=== PATIENT | male | born 1950 | race African-American/Black ===

== ENCOUNTER 2023-06-30 12:31 | Emergency (ER) | payer OTHER, SELFPAY ==
[2023-06-30 12:40] VITALS: BP 212/91; PULSE 58; RESP 20; TEMP 36.5; O2SAT 98
--- NOTE | 2023-06-30 12:52 | ED.GENADULT ---
HPI - General Adult General Chief complaint: Unspecified Stated complaint: High Blood Pressure History of Present Illness HPI narrative: PATIENT PRESENTS FOR EVALUATION OF ELEVATED BLOOD PRESSURE READING AT HOME. PATIENT STATES EARLIER TODAY HE STOOD UP AND HE HAD RIGHT-SIDED LEG WEAKNESS WAS DIZZY AND HAD A HEADACHE. EMS WAS CALLED AND HIS BLOOD PRESSURE WAS ELEVATED AT THAT TIME. PATIENT REFUSED TRANSPORTATION TO EMERGENCY ROOM. PATIENT REPORTS TO URGENT CARE FOR EVALUATION OF ELEVATED BLOOD PRESSURE. AT THIS TIME HE HAS NO HEADACHE PATIENT TOOK IBUPROFEN PRIOR TO ARRIVAL FOR HEADACHE. NO DIZZINESS NO SHORTNESS OF BREATH AND NO CHEST PAIN. PATIENT HAS NOT BEEN EVALUATED BY PRIMARY CARE PROVIDER IN SEVERAL YEARS AND TAKES Related Data Allergies Allergy/AdvReac Type Severity Reaction Status Date / Time No Known Allergies Allergy Uncoded 08/16/19 21:55 Review of Systems Review of Systems: CONSTITUTIONAL: DENIES FEVER, CHILLS, OR SWEATS. EYES: DENIES VISUAL CHANGES, REDNESS, OR DISCHARGE. ENT: DENIES RHINORRHEA, CONGESTION, SORE THROAT, OR OTALGIA. CARDIOVASCULAR: DENIES CHEST PAIN, PALPITATIONS, OR EDEMA. RESPIRATORY: DENIES COUGH OR DYSPNEA. GASTROINTESTINAL: DENIES ABDOMINAL PAIN, NAUSEA, VOMITING, OR DIARRHEA. GENITOURINARY: DENIES DYSURIA OR HEMATURIA. SKIN: DENIES RASH OR ITCHING. MUSCULOSKELETAL: DENIES BACK PAIN, JOINT PAIN, OR MYALGIA. NEUROLOGIC: DENIES HEADACHE, NUMBNESS, OR WEAKNESS. PSYCHIATRIC: DENIES ANXIETY OR DEPRESSION. PMFSH Comments AT TIME OF SIGNATURE, AGREE WITH NURSING PAST MEDICAL, SURGICAL, SOCIAL AND FAMILY HISTORY. THERE IS NO RELEVANT FAMILY HISTORY PERTINENT TO THE PRESENTING COMPLAINT Exam Narrative: GENERAL: WELL-APPEARING, WELL-NOURISHED, AND IN NO ACUTE DISTRESS. HEAD: NORMOCEPHALIC, ATRAUMATIC. EYES: PERRLA AND EOMI. ENT: NARES CLEAR, NO RHINORRHEA OR EPISTAXIS. MUCOUS MEMBRANES MOIST. NECK: SUPPLE. CHEST: CLEAR TO AUSCULTATION. NO RESPIRATORY DISTRESS. HEART: REGULAR RATE AND RHYTHM. NO MURMUR HEARD. NORMAL PERIPHERAL PULSES. ABDOMEN: SOFT, NONTENDER, NONDISTENDED, NORMAL ACTIVE BOWEL SOUNDS. EXTREMITIES: NORMAL RANGE OF MOTION. NO EDEMA. SKIN: WARM, DRY, NO RASH. NEURO: NO FOCAL DEFICITS. ALERT AND ORIENTED X3. SPEECH IS CLEAR. NO LANGUAGE DEFICITS. CRANIAL NERVES: PUPILS EQUAL, ROUND, AND REACTIVE TO LIGHT. VISUAL LEWIS FULL. EXTRA-OCULAR MOVEMENTS INTACT. NO NYSTAGMUS NOTED. FACIAL SENSATION INTACT TO LIGHT TOUCH. FACIAL MOVEMENT FULL AND SYMMETRIC. PALATE MIDLINE. TONGUE MIDLINE, MOVING EQUALLY IN BOTH DIRECTIONS. UVULA IS MIDLINE. SHOULDER SHRUG EQUAL ON BOTH SIDES. BILATERAL HAND GRASP 5/5. GAIT NORMAL. HEEL TO TOE AND TANDEM WALK NORMAL. FINGER TO NOSE NORMAL. NEG ROMBERG. DICK COMA SCALE EYE OPENING: SPONTANEOUS 4 DICK COMA SCALE MOTOR: OBEYS COMMANDS 6 DICK COMA SCALE VERBAL: ORIENTED 5 DICK COMA SCALE TOTAL 15 Course Course Level of Care: Express Care Visit Vital Signs Vital signs: Vital Signs Temperature 36.5 C 06/30/23 12:40 Pulse Rate 58 L 06/30/23 12:40 Respiratory Rate 20 06/30/23 12:40 Blood Pressure 212/91 H 06/30/23 12:40 Pulse Oximetry 98 06/30/23 12:40 Oxygen Delivery Room Air 06/30/23 12:40 Temperature 36.5 C 06/30/23 12:40 Pulse Rate 58 L 06/30/23 12:40 Respiratory Rate 20 06/30/23 12:40 Blood Pressure 212/91 H 06/30/23 12:40 Pulse Oximetry 98 06/30/23 12:40 Oxygen Delivery Room Air 06/30/23 12:40 DISCUSSED RED FLAGS AND PATIENT'S SINUS SYMPTOMS PRIOR TO ARRIVAL AND PATIENT DECLINES TRANSFER TO EMERGENCY ROOM AT THIS TIME. ENCOURAGE PATIENT TO GO TO EMERGENCY ROOM FOR FURTHER EVALUATION TREATMENT OF BLOOD PRESSURE. DAUGHTER IN ROOM AND STATES SHE WILL MONITOR HER FATHER AND TAKE TO EMERGENCY ROOM FOR FURTHER EVALUATION TREATMENT IF ANY NEW OR RETURNING OF SYMPTOMS. Medical Decision Making Vital Signs Vital Signs: Vital Signs Temperature 36.5 C 06/30/23 12:40 Pulse Rate 58
== END 2023-06-30 13:07 | disposition left against medical advice (07) ==
PROVIDERS: Emergency Provider Nurse Practitioner Family
DX: R03.0 Elevated blood-pressure reading, without diagnosis of hypertension (principal)
CPT/HCPCS: 99202; G0463

== ENCOUNTER 2025-09-09 14:42 | Emergency (ER) | payer OTHER, SELFPAY ==
[2025-09-09] VITALS (13 sets, daily range): BP systolic 159–232; BP diastolic 91–105; PULSE 56–63; RESP 16–20; TEMP 36.8; O2SAT 95–100
--- NOTE | ~2025-09-09 | XR_ITS ---
EXAMINATION: XR chest 1V portable COMPARISON: No comparisons available. HISTORY: chest pain FINDINGS: Mild pulmonary venous congestion. No pneumothorax. Mild cardiomegaly. Mediastinal and hilar contours are within normal limits. Bony thorax no acute abnormality. Miscellaneous: None Impression: Mild CHF Reviewed, dictated and finalized at location P. S DATA ANALYST Impression: Mild CHF
--- NOTE | ~2025-09-09 | CT_ITS ---
CT chest abdomen pelvis w con HISTORY: chest pain, lower abd pain/r flank pain, poss canc . COMPARISON: None. TECHNIQUE: Axial images of the chest, abdomen and pelvis were obtained without and with infusion of 100 Isovue 300. FINDINGS: CT CHEST: The examination demonstrates diffuse centrilobular emphysematous changes. There is a 6.7 mm pulmonary nodule in the posterior right lower lobe measured on axial image 70. On the same image is a 5.4 mm pleural-based pulmonary nodule within the right lower lobe. There is groundglass and interstitial opacities within the right lower lobe. No focal consolidation, pleural effusions or pneumothorax. No pathologically enlarged hilar or mediastinal lymphadenopathy is seen. Cardiac size and mediastinal configuration are normal in appearance. The pulmonary artery and thoracic aorta are normal in caliber and patency. Osseous structures are intact. The visualized organs of the upper abdomen are unremarkable. IMPRESSION: Pulmonary nodules within the right lower lobe measuring up to 6.7 mm. A follow- up low-dose CT in 6 months can be done to ensure stability. CT abdomen and pelvis with contrast: The liver parenchyma is unremarkable. No intrahepatic mass or ductal dilatation is evident. The gallbladder is unremarkable. The pancreas and spleen are normal in appearance. The adrenal glands are symmetric in size. The kidneys demonstrate symmetric uptake and excretion of contrast. No cystic mass is evident. There is no solid mass. There is no hydronephrosis. There is a enhancing nodule at the base of the right side the bladder measuring 10 x 18 mm. This is concerning for a tumor and a follow-up cystoscopy is recommended. The stomach and bowel loops are unremarkable. No free intraperitoneal fluid or air is evident. There is no significant retroperitoneal lymphadenopathy. The aorta, visceral vessels and renal arteries demonstrate normal caliber and patency. The lower thoracic and lumbar vertebrae are in normal alignment. IMPRESSION: 10 x 18 mm enhancing nodule within the right sided of the bladder concerning for malignancy. Follow-up cystoscopy is recommended. All CT scans at this facility are performed using low dose modulation techniques as appropriate to perform exam including the following: automated exposure control; use of iterative reconstruction technique; adjustment of the mA and/or kV according to patient size (this includes techniques or standardized protocols for targeted exams where dose is matched to indication/reason for exam) Reviewed, dictated and finalized at location S. MOLDER MEAT IMPRESSION: Pulmonary nodules within the right lower lobe measuring up to 6.7 mm. A follow- up low-dose CT in 6 months can be done to ensure stability. CT abdomen and pelvis with contrast: The liver parenchyma is unremarkable. No intrahepatic mass or ductal dilatation is evident. The gallbladder is unremarkable. The pancreas and spleen are gary l in appearance. The adrenal glands are symmetric in size. The kidneys demonstrate symmetric uptake and excretion of contrast. No cystic m ass is evident. There is no solid mass. There is no hydronephrosis. There is a enhancing nodule at the base of the right side the bladder measuring 10 x 18 m m. This is concerning for a tumor and a follow-up cystoscopy is recommended. The stomach and bowel loops are unremarkable. No free intraperitoneal fluid or air is evident. There is no significant retro peritoneal lymphadenopathy. The aorta, visceral vessels and renal arteries demonstrate normal caliber and p atency. The lower thoracic and lumbar vertebrae are in normal alignment. IMPRESSION: 10 x 18 mm enhancing nodule within the right sided of the bladder concerning fo r malignancy. Follow-up cystoscopy is recommended. All CT scans at this facility are performed using low dose modulation techniqu es as appropriate to perform exam including the following: automated exposure c ontrol; use of iterative reconstruction technique; adjustment of the mA and/or kV according to patient size (this includes techniques or standardized protocol s for targeted exams where dose is matched to indication/reason for exam)
--- NOTE | 2025-09-09 16:21 | ED_ITS ---
HPI - General Adult General Chief complaint: Urogenital-Male Stated complaint: tired Time Seen by Provider: 09/09/25 16:21 Related Data Allergies Allergy/AdvReac Type Severity Reaction Status Date / Time No Known Allergies Allergy Uncoded 08/16/19 21:55 Course Vital Signs Vital signs: Vital Signs Temperature 98.3 F 09/09/25 14:47 Pulse Rate 62 09/09/25 14:47 Respiratory Rate 16 09/09/25 14:47 Blood Pressure 159/100 H 09/09/25 14:47 Pulse Oximetry 95 09/09/25 14:47 Temperature 98.3 F 09/09/25 14:47 Pulse Rate 62 09/09/25 14:47 Respiratory Rate 16 09/09/25 14:47 Blood Pressure 159/100 H 09/09/25 14:47 Pulse Oximetry 95 09/09/25 14:47 Medical Decision Making Vital Signs Vital Signs: Vital Signs Temperature 98.3 F 09/09/25 14:47 Pulse Rate 62 09/09/25 14:47 Respiratory Rate 16 09/09/25 14:47 Blood Pressure 159/100 H 09/09/25 14:47 Pulse Oximetry 95 09/09/25 14:47 Temperature 98.3 F 09/09/25 14:47 Pulse Rate 62 09/09/25 14:47 Respiratory Rate 16 09/09/25 14:47 Blood Pressure 159/100 H 09/09/25 14:47 Pulse Oximetry 95 09/09/25 14:47 Discharge Plan Discharge Patient Language: Greenlandic Follow-up/Referrals: PHYSICIAN,INTERLOCKING TOWER OPERATOR [Primary Care Provider, Internal Medicine]
[2025-09-09 17:30] LABS: Add Urine Microscopic? YES; Appearance Urine Clear (Clear); Glucose Urine UA Negative (Negative); Leukocyte Esterase Ur 1+ LEU/UL (Negative); Nitrate Urine Negative (Negative); Non Pathogenic Casts 0-2; Specific Grav Ur 1.021 (1.001-1.035)
--- NOTE | 2025-09-09 17:31 | ECG_ITS ---
Test Date: 2025-09-09 18:00:09 Measurements Intervals [place] Rate: 56 P: 49 NC: 136 QRS: 51 QRSD: 137 T: 13 QT: 456 QTc: 441 Interpretive Statements SINUS BRADYCARDIA INTRAVENTRICULAR CONDUCTION DELAY Electronically Signed On 09-10-2025 07:20:07 HEAD KILN OPERATOR by Ernst Rockwell D.O
--- NOTE | 2025-09-09 17:34 | ED_ITS ---
HPI - General Adult General Chief complaint: Urogenital-Male Stated complaint: tired Time Seen by Provider: 09/09/25 16:21 Source: patient Mode of arrival: ambulatory Limitations: no limitations History of Present Illness HPI narrative: This is a 74-year-old male with no significant past medical history who presents the ED for a constellation of complaints. Patient states that for the past couple days, he has been having intermittent hematuria and urinary urgency. He had this once a month ago but did not see a physician for it. He states that today he was at work at his [employer]. Cleaning something when he had onset of chest tightness. He has never had this before. He is unaware of any history of cardiac disease or hypertension. He has not seen a physician in several years. Denies shortness of breath, nausea vomiting, diarrhea, constipation abdominal pain. Related Data Allergies Allergy/AdvReac Type Severity Reaction Status Date / Time No Known Allergies Allergy Uncoded 08/16/19 21:55 Review of Systems 2 Review of Systems: Gen.: Denies fevers or chills Eyes: Denies eye pain or visual change ENT: Denies congestion Respiratory: Denies shortness of breath or cough CV: As per HPI GI: Denies abdominal pain nausea, emesis or diarrhea as per HPI Musculoskeletal: Denies back pain or muscle pain Neuro: Denies numbness, tingling, weakness or focal weakness Skin: Denies rash Except as documented, all other systems reviewed and negative Exam 2 Narrative: APPEARANCE: No acute distress, nontoxic, resting in bed EYES: EOMI HEENT: Normocephalic, atraumatic, OMM RESPIRATORY: No respiratory distress Clear to auscultation bilaterally with no rhonchi wheezing or rales. CARDIOVASCULAR: Regular rate and rhythm without murmurs rubs or gallops. ABDOMINAL: Soft, nontender, nondistended, no rebound or guarding MUSCULOSKELETAl: Moves all extremities. No clubbing, cyanosis or edema. NEURO: Awake and alert. Following commands, speech normal, no focal deficits SKIN:: Warm, dry. No rashes lesions or abrasions PSYCHIATRIC: Normal affect/mood, Course Vital Signs Vital signs: Vital Signs Temperature 98.3 F 09/09/25 14:47 Pulse Rate 62 09/09/25 14:47 Respiratory Rate 16 09/09/25 14:47 Blood Pressure 159/100 H 09/09/25 14:47 Pulse Oximetry 95 09/09/25 14:47 Temperature 98.3 F 09/09/25 14:47 Pulse Rate 63 09/09/25 19:33 Respiratory Rate 20 09/09/25 19:33 Blood Pressure 224/97 H 09/09/25 19:33 Pulse Oximetry 97 09/09/25 19:33 Oxygen Delivery Room Air 09/09/25 15:42 Medical Decision Making MDM Narrative Medical decision making narrative: 74-year-old male Presenting for hematuria and chest pain that is now resolved. On initial evaluation patient was in no acute distress afebrile. Noted to be hypertensive to the 220s/90s. Differentials include but are not limited to: ACS, PE, PNA, bronchitis, costochondritis, pleurisy, viral syndrome, GERD, bladder cancer, UTI, ureterolithiasis Notable exam findings: Abdomen soft nontender. Heart and lungs clear. Notable lab findings: Mild anemia at 12.7. CMP without significant abnormalities. BNP slightly elevated at 500. UA consistent with hematuria without signs infections. Notable imaging findings: Chest x-ray consistent with mild CHF. CT chest/abdomen/pelvis showed pulmonary nodule in the right lower lobe that is 6.7 mm. Also noted 10 x 18 mm enhancing nodule in the right bladder they could be concerning for malignancy. Patient remained hypertensive throughout his ED course but he was noted to have no chest pain throughout his ED course. He had no other symptoms concerning for hypertensive emergency at this time. Patient has likely been hypertensive for years at this point and he does not follow-up with any physician. He was given 10 mg amlodipine given the extent of his hypertension his only slightly prior to discharge. Patient was educated on the bladder nodule noted that he removed her urology evaluation for cystoscopy as this likely is likely the course of his hematuria. Patient was given referral to Dr. Kowalski, urology, for further evaluation. He was also given a referral to Dr. Starks, family Medicine, to establish care especially for his hypertension. He was given a prescription for amlodipine. Patient was agreeable to this plan. Given strict return precautions. Vital Signs Vital Signs: Vital Signs Temperature 98.3 F 09/09/25 14:47 Pulse Rate 62 09/09/25 14:47 Respiratory Rate 16 09/09/25 14:47 Blood Pressure 159/100 H 09/09/25 14:47 Pulse Oximetry 95 11/05/25 14:47 Temperature 98.3 F 09/09/25 14:47 Pulse Rate 63 09/09/25 19:33 Respiratory Rate 20 09/09/25 19:33 Blood Pressure 224/97 H 09/09/25 19:33 Pulse Oximetry 97 09/09/25 19:33 Oxygen Delivery Room Air 09/09/25 15:42 Lab Data Lab results reviewed: Yes I reviewed the patient's lab results. 09/09/25 17:57 09/09/25 17:57 Labs: Lab Results 09/09/25 09/09/25 09/09/25 Range/Units 17:19 17:57 17:57 WBC 7.2 (4.5-10.0) K/mm3 RBC 5.29 (4.6-6.20) M/mm3 Hgb 12.7 L (14.0-18.0) g/dL Hct 41.3 L (42.0-52.0) % MCV 78.1 L (80-100) fl MCH 24.0 L (26-34) pg MCHC 30.8 L (32-36) g/dl RDW 14.7 H (11.5-14.5) % Plt Count 266 (150-375) k/mm3 MPV 11.3 H (7.4-10.4) fl Immature Gran % (Auto) 0.3 (0-0.5) % Neut % (Auto) 41.1 L (45.5-73.1) % Lymph % (Auto) 39.5 (18.3-44.2) % [place] % (Auto) 13.7 H (2.6-8.5) % Eos % (Auto) 4.3 (0-4.4) % Baso % (Auto) 1.1 (0.2-1.2) % Lymph # (Auto) 2.83 (0.9-3.2) K/mm3 [place] # (Auto) 1.0 H (0.1-0.6) K/mm3 Eos # (Auto) 0.3 (0-0.3) K/mm3 Baso # (Auto) 0.1 (0.0-0.1) K/mm3 Abs Immat Gran (auto) 0.02 (0.00-0.031) K/mm3 Absolute Neuts (auto) 3.0 (1.3-6.7) K/mm3 Absolute Nucleated RBC 0.000 (0.0-0.012) K/mm3 Nucleated RBC % 0.0 (0.0-0.2) % Sodium 137 (137-145) mmol/L Potassium 3.7 (3.4-5.0) mmol/L Chloride 108 H (98-107) mmol/L Carbon Dioxide 25 (22-30) mmol/L Anion Gap 4 (4-12) mmol/L BUN 20 (9-20) mg/dL Creatinine 1.00 (0.7-1.3) mg/dL Estim Creat Clear Calc 49 ml/min Estimated GFR > 60 (59 - ) Glucose 105 (65-110) mg/dL Calcium 8.6 (8.4-10.2) mg/dL Total Bilirubin 0.5 (0.2-1.3) mg/dL AST 25 (17-59) U/L ALT 19 (6-50) U/L Alkaline Phosphatase 63 (38-126) U/L Troponin I < 0.012 Cancelled (0.000-0.034) ng/mL NT-Pro-B Natriuret Pep 566 H (19.9-100) pg/mL Total Protein (6.3-8.2) g/dL Albumin (3.5-5.1) g/dL Urine Color Yellow (Yellow) Urine Appearance Clear (Clear) Urine pH 5.5 (5.0-9.0) Ur Specific [place] 1.021 (1.001-1.035) Urine Protein Trace (Negative) mg/dL Urine Glucose (UA) Negative (Negative) mg/dL Urine Ketones Trace H (Negative) mg/dL Ur Blood (Man) 2+ H (Negative) Urine Nitrate Negative (Negative) Urine Bilirubin Negative (Negative) Urine Urobilinogen 1.0 (<2.0) mg/dL Leukocyte Esterase Rfl 1+ H (Negative) GUSTAVO/UL Urine RBC 21-50 H (0-2) /hpf Urine WBC 21-50 H (0-3) /hpf Ur Squamous Epith Cells Occasional (Few) /hpf Urine Bacteria None seen /hpf Urine Casts 0-2 11/05/25 Range/Units 17:57 WBC (4.5-10.0) K/mm3 RBC (4.6-6.20) M/mm3 Hgb (14.0-18.0) g/dL Hct (42.0-52.0) % MCV (80-100) fl MCH (26-34) pg MCHC (32-36) g/dl RDW (11.5-14.5) % Plt Count (150-375) k/mm3 MPV (7.4-10.4) fl Immature Gran % (Auto) (0-0.5) % Neut % (Auto) (45.5-73.1) % Lymph % (Auto) (18.3-44.2) % [place] % (Auto) (2.6-8.5) % Eos % (Auto) (0-4.4) % Baso % (Auto) (0.2-1.2) % Lymph # (Auto) (0.9-3.2) K/mm3 [place] # (Auto) (0.1-0.6) K/mm3 Eos # (Auto) (0-0.3) K/mm3 Baso # (Auto) (0.0-0.1) K/mm3 Abs Immat Gran (auto) (0.00-0.031) K/mm3 Absolute Neuts (auto) (1.3-6.7) K/mm3 Absolute Nucleated RBC (0.0-0.012) K/mm3 Nucleated RBC % (0.0-0.2) % Sodium (137-145) mmol/L Potassium (3.4-5.0) mmol/L Chloride (98-107) mmol/L Carbon Dioxide (22-30) mmol/L Anion Gap (4-12) mmol/L BUN (9-20) mg/dL Creatinine (0.7-1.3) mg/dL Estim Creat Clear Calc ml/min Estimated GFR (59 - ) Glucose (65-110) mg/dL Calcium (8.4-10.2) mg/dL Total Bilirubin (0.2-1.3) mg/dL AST (17-59) U/L ALT (6-50) U/L Alkaline Phosphatase (38-126) U/L Troponin I (0.000-0.034) ng/mL NT-Pro-B Natriuret Pep Cancelled (19.9-100) pg/mL Total Protein 7.2 (6.3-8.2) g/dL Albumin 3.8 (3.5-5.1) g/dL Urine Color (Yellow) Urine Appearance (Clear) Urine pH (5.0-9.0) Ur Specific [place] (1.001-1.035) Urine Protein (Negative) mg/dL Urine Glucose (UA) (Negative) mg/dL Urine Ketones (Negative) mg/dL Ur Blood (Man) (Negative) Urine Nitrate (Negative) Urine Bilirubin (Negative) Urine Urobilinogen (<2.0) mg/dL Leukocyte Esterase Rfl (Negative) GUSTAVO/UL Urine RBC (0-2) /hpf Urine WBC (0-3) /hpf Ur Squamous Epith Cells (Few) /hpf Urine Bacteria /hpf Urine Casts Imaging Data Attestation: I personally reviewed and interpreted this imaging study as follows: My impression: Chest x-ray: Mild pulmonary vascular congestion, no consolidations, no pleural effusions, Radiologist's impression: Impressions Chest X-Ray 09/09/25 17:44 Impression: Mild CHF Chest/Abdomen/Pelvis CT 09/09/25 18:40 IMPRESSION: Pulmonary nodules within the right lower lobe measuring up to 6.7 mm. A follow- up low-dose CT in 6 months can be done to ensure stability. CT abdomen and pelvis with contrast: The liver parenchyma is unremarkable. No intrahepatic mass or ductal dilatation is evident. The gallbladder is unremarkable. The pancreas and spleen are normal in appearance. The adrenal glands are symmetric in size. The kidneys demonstrate symmetric uptake and excretion of contrast. No cystic mass is evident. There is no solid mass. There is no hydronephrosis. There is a enhancing nodule at the base of the right side the bladder measuring 10 x 18 mm. This is concerning for a tumor and a follow-up cystoscopy is recommended. The stomach and bowel loops are unremarkable. No free intraperitoneal fluid or air is evident. There is no significant retroperitoneal lymphadenopathy. The aorta, visceral vessels and renal arteries demonstrate normal caliber and patency. The lower thoracic and lumbar vertebrae are in normal alignment. IMPRESSION: 10 x 18 mm enhancing nodule within the right sided of the bladder concerning for malignancy. Follow-up cystoscopy is recommended. All CT scans at this facility are performed using low dose modulation techniques as appropriate to perform exam including the following: automated exposure control; use of iterative reconstruction technique; adjustment of the mA and/or kV according to patient size (this includes techniques or standardized protocols for targeted exams where dose is matched to indication/reason for exam) Discharge Plan Discharge Clinical Impression: Bladder mass Hematuria Qualifiers: Hematuria type: gross Qualified Code(s): R31.0 - Gross hematuria Hypertension Qualifiers: Hypertension type: unspecified Qualified Code(s): I10 - Essential (primary) hypertension Patient Disposition: Home Condition: Stable Instructions: Antibiotic Form, Hematuria (ED), Hypertension (ED) Additional Instructions: You were found to have a mass on her bladder which is likely the source of your bleeding. This needs further evaluation by a urologist. You were given a referral to Dr. Kowalski, call his office to schedule an appointment. You were also given a referral to Dr. Starks, family medicine, for follow up of your hypertension. You are given a prescription for amlodipine, take this as prescribed. Return to the ED for any new or worsening symptoms. Patient Language: Qatari Prescriptions: New amlodipine 10 mg tablet 10 mg PO DAILY Qty: 30 0RF Follow-up/Referrals: Riddhi Starks DO [Physician, Family Practice] PHYSICIAN,PASTRY DECORATOR [Primary Care Provider, Internal Medicine] Lewis Kowalski MD [Physician, Urology]
--- NOTE | 2025-09-09 17:57 | PC.NURSE ---
Pt. is hypertensive at 231/. Denies current CP, headache or SOB. Pt. denies a history of htn but states I haven't been to the doctor in 2 or 3 years.
[2025-09-09 18:06] LABS: Hematocrit 41.3 % (42.0-52.0); Hemoglobin 12.7 g/dL (14.0-18.0); Immature Granulocyte Percent A 0.3 % (0-0.5); Lymphocytes Absolute Auto 2.83 K/mm3 (0.9-3.2); Mean Corpuscular HGB Conc 30.8 g/dl (32-36); Mean Corpuscular Hemoglobin 24.0 pg (26-34); Mean Corpuscular Volume 78.1 fl (80-100); Nucleated Red Blood Cells Absolute Auto 0.000 K/mm3 (0.0-0.012); Nucleated Red Blood Cells Perc 0.0 % (0.0-0.2); Platelet Count Result 266 k/mm3 (150-375); Red Blood Count 5.29 M/mm3 (4.6-6.20); White Blood Count 7.2 K/mm3 (4.5-10.0)
[2025-09-09 18:18] LABS: Alanine Aminotransferase 19 U/L (6-50); Albumin Level 3.8 g/dL (3.5-5.1); Alkaline Phosphatase 63 U/L (38-126); Anion Gap 4 mmol/L (4-12); Aspartate Amino Transferase 25 U/L (17-59); Bilirubin,Total 0.5 mg/dL (0.2-1.3); Blood Urea Nitrogen 20 mg/dL (9-20); Calcium 8.6 mg/dL (8.4-10.2); Carbon Dioxide 25 mmol/L (22-30); Chloride 108 mmol/L (98-107); Estimated CRCL calculation 49 ml/min; Estimated Glomerular Filt Rate > 60; Glucose 105 mg/dL (65-110); Potassium 3.7 mmol/L (3.4-5.0); Sodium 137 mmol/L (137-145); Total Protein 7.2 g/dL (6.3-8.2)
[2025-09-09 18:29] LABS: NT Pro B Type Natriuretic Pept 566 pg/mL (19.9-100); Troponin I < 0.012 ng/mL (0.000-0.034)
--- NOTE | 2025-09-09 18:37 | PC.NURSE ---
Pt. in CT.
--- NOTE | 2025-09-09 20:05 | PC.NURSE ---
Provider at bedside for BP recheck post amlodipine.
== END 2025-09-09 20:28 | disposition home or self-care (01) ==
PROVIDERS: Emergency Provider Student in an Organized Health Care Education/Training Program
DX: N32.9 Bladder disorder, unspecified (principal); R31.0 Gross hematuria; I10 Essential (primary) hypertension; R00.1 Bradycardia, unspecified; I45.9 Conduction disorder, unspecified
CPT/HCPCS: 36415; 71045; 71260; 74177; 80053; 81001; 83880; 84484; 85025; 87086; 93005; 99284; A9270; Q9967